=== PATIENT | male | born 1970 | race African-American/Black ===

== ENCOUNTER 2019-08-01 17:49 | Emergency (ER) | payer MEDICAID | END 2019-08-01 18:46 | disposition left against medical advice (07) | LOC: EDBD → DL.ED 17:49 | DX: Z53.21 Procedure and treatment not carried out due to patient leaving prior to being seen by health care provider (principal) ==

== ENCOUNTER 2019-08-02 14:14 | Emergency (ER) | payer MEDICAID | END 2019-08-02 15:02 | disposition left against medical advice (07) | LOC: DL.ED 14:14 | DX: Z53.21 Procedure and treatment not carried out due to patient leaving prior to being seen by health care provider (principal) ==